=== PATIENT | female | born 1985 | race Caucasian/White ===

== ENCOUNTER 2021-09-14 00:13 | Day surgery (SDC) | payer OTHER, SELFPAY ==
[2021-09-02 14:07] VITALS: BMI 52.4
--- NOTE | 2021-09-11 11:13 | SUR.PREOP ---
Left voicemail about magnesium citrate recall.
[2021-09-14 11:05] VITALS: BP 133/73; PULSE 92; RESP 18; TEMP 36.4; O2SAT 100
[2021-09-14] MEDS: LACTATED RINGERS 1,000 ML 150 ML IV CONT (11:07)
--- NOTE | 2021-09-14 11:48 | P.HP_ITS ---
H&P: HPI History of Present Illness Date/Time: 09/14/21 11:48 Chief Complaint: Rectal bleeding. Narrative: This is a 36-year-old white female patient has a lifelong history of bowel issues. She has a long history of constipation. Has had bright red blood per rectum frequently. This has been ongoing although somewhat intermittent. Page presents today for further evaluation. Her family history is significant her mother had polyps her grandmother had colon cancer. Patient denies any specific abdominal pain. Patient presents today for colonoscopy to assess rectal bleeding. Review of Systems Review of Systems: Review of systems noncontributory. 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 [employer] Gender identity (if verbalized by the patient): Female Sexual Orientation (if Verbalized by the Patient): Straight or Heterosexual Meds Home Medications and Allergies Home Medications Medication Instructions Recorded Confirmed Type triamcinolone acetonide 0.1 % 1 applic topical BID #30 grams 03/26/21 09/14/21 Rx topical cream duloxetine 60 mg capsule,delayed 60 mg PO DAILY #30 caps 09/11/21 09/14/21 Rx release (Cymbalta) Allergies Allergy/AdvReac Type Severity Reaction Status Date / Time quetiapine [From Seroquel] Allergy Severe Swelling Verified 09/14/21 11:03 of Lip/Tongue/Throat diphenhydramine AdvReac Mild Other Verified 09/14/21 11:03 [From Benadryl] Vital Signs Vital Signs - 24 hr 09/14/21 11:05 Temperature 97.6 F Pulse Rate 92 Respiratory Rate 18 Blood Pressure 133/73 Pulse Oximetry 100 Oxygen Delivery Room Air Exam Narrative: Physical exam reveals patient be alert. Vital signs stable. HEENT exam is unremarkable. Patient is anicteric. Lungs are clear to auscultation and percussion. Heart is without murmur or extra sounds. Abdominal exam bowel sounds are present soft nontender with no organomegaly. Digital external rectal exam is normal. Assessment and Plan Assessment and plan (1) Blood present in stool: Code(s): K92.1 - Melena Status: Acute Assessment and Plan: Patient with rectal bleeding. A appears to be associated with her regular bowel habits and tendency towards constipation. Family history is significant her mother had colon polyps in a grandparent had colon cancer. Plan is for screening colonoscopy at this time. Fiber supplementation is encouraged. If hemorrhoids are identified she may benefit from surgical evaluation for hemorr hoidectomy given the long standing frequent rectal bleeding.
--- NOTE | 2021-09-14 12:01 | WPDANESEPPF ---
Anes - Initial Pre Proc Eval Procedure: Operation Date: 09/14/21 12:30 Proposed Procedures p Colonoscopy - Humphrey Chacko MD Date/Time: 09/14/21 12:01 Surgeon: Humphrey Chacko MD Pre Op Diagnosis: melena Patient Data Age: 36 Gender: F Height: 1.57 m Weight: 130.7 kg Last Vital Signs Temp 97.6 F 09/14/21 11:05 Pulse 92 09/14/21 11:05 Resp 18 09/14/21 11:05 BP 133/73 09/14/21 11:05 Pulse Ox 100 09/14/21 11:05 O2 Del Method Room Air 09/14/21 11:05 Allergies Allergy/AdvReac Type Severity Reaction Status Date / Time quetiapine [From Seroquel] Allergy Severe Swelling Verified 09/14/21 11:03 of Lip/Tongue/Throat diphenhydramine AdvReac Mild Other Verified 09/14/21 11:03 [From Benadryl] Home Medications Medication Instructions Recorded Confirmed Type triamcinolone acetonide 0.1 % 1 applic topical BID #30 grams 03/26/21 09/14/21 Rx topical cream duloxetine 60 mg capsule,delayed 60 mg PO DAILY #30 caps 09/11/21 09/14/21 Rx release (Cymbalta) Patient hx anesthesia problems: none Family hx anesthesia problems: none Results Review: All pre-operative results and documents have been reviewed as part of the pre-operative evaluation. 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 Informed Consent: The patient's anesthetic plan and its attendant risks and benefits were discussed with the patient/family/POA. Questions were solicited and answers provided to the satisfaction of the patient/family/POA.
[2021-09-14 12:45] VITALS: BP 78/59; PULSE 79; RESP 22; O2SAT 100
[2021-09-14 12:55] VITALS: BP 109/83; PULSE 73; RESP 20; O2SAT 100
[2021-09-14 13:05] VITALS: BP 115/75; PULSE 78; RESP 18; O2SAT 100
== END 2021-09-14 13:12 | disposition home or self-care (01) ==
PROVIDERS: PCP Internal Medicine; Visit Provider Internal Medicine Gastroenterology
PROC: 0DJD8ZZ Inspection of Lower Intestinal Tract, Via Natural or Artificial Opening Endoscopic (ICD-10-PCS; CPT 45378; principal; 2021-09-14 12:30)
DX: K62.5 Hemorrhage of anus and rectum (principal); D12.0 Benign neoplasm of cecum; D12.2 Benign neoplasm of ascending colon; K64.8 Other hemorrhoids; Z83.71 Family history of colonic polyps; K59.00 Constipation, unspecified; Z87.891 Personal history of nicotine dependence; E66.01 Morbid (severe) obesity due to excess calories; Z68.43 Body mass index [BMI] 50.0-59.9, adult
CPT/HCPCS: 45385; 88305; J2704; J7120

== ENCOUNTER 2021-10-26 11:04 | Emergency (ER) | payer OTHER, SELFPAY ==
--- NOTE | ~2021-10-26 | XR_ITS ---
XR chest 2V 10/26/2021 15:50 Indication: Shortness of breath. Chest pain. Procedure: 2 view chest Comparison: 05/15/2021 Findings: Heart size normal. Mildly elevated right diaphragm. Prominent fat pad along the right costo phrenic angle. No significant effusion seen on the lateral view. There are fusion changes of the thor acic spine. No acute focal pneumonia, edema or pneumothorax. Impression: 1: No acute cardiopulmonary disease. Reviewed, dictated and finalized at location A. Impression: 1: No acute cardiopulmonary disease.
[2021-10-26 11:46] VITALS: BP 138/85; PULSE 100; RESP 19; TEMP 36.4; O2SAT 100
--- NOTE | 2021-10-26 11:50 | ECG_ITS ---
Measurements Intervals [place] Rate: 92 P: 41 MT: 142 QRS: 1 QRSD: 84 T: 20 QT: 333 QTc: 413 Interpretive Statements SINUS RHYTHM LOW QRS VOLTAGE IN PRECORDIAL LEADS BORDERLINE ECG NO PREVIOUS ECG AVAILABLE FOR COMPARISON Electronically Signed On 10-26-2021 13:57:11 CDT by Michael Chen D.O.
[2021-10-26 13:45] LABS: Basophils Percent Auto 0.3 % (0.2-1.2); Eosinophils Absolute Auto 0.1 K/mm3 (0-0.3); Eosinophils Percent Auto 1.2 % (0-4.4); Hematocrit 43.2 % (37.0-47.0); Hemoglobin 14.1 g/dL (12.0-15.0); Immature Granulocyte Absolute 0.04 K/mm3 (0.00-0.031); Immature Granulocyte Percent A 0.4 % (0-0.5); Lymphocytes Percent Auto 20.2 % (18.3-44.2); Mean Corpuscular HGB Conc 32.6 g/dl (32-36); Mean Corpuscular Hemoglobin 29.9 pg (26-34); Mean Corpuscular Volume 91.7 fl (80-100); Mean Platelet Volume 9.3 fl (7.4-10.4); Monocytes Absolute Auto 0.6 K/mm3 (0.1-0.6); Monocytes Percent Auto 6.8 % (2.6-8.5); Neutrophils Absolute Auto 6.7 K/mm3 (1.3-6.7); Neutrophils Percent Auto 71.1 % (45.5-73.1); Platelet Count Result 385 k/mm3 (150-375); Red Blood Count 4.71 M/mm3 (4.2-5.4); Red Cell Distribution Width 13.2 % (11.5-14.5); White Blood Count 9.4 K/mm3 (4.5-10.0)
[2021-10-26 13:57] LABS: Alanine Aminotransferase 34 U/L (6-35); Albumin Level 4.7 g/dL (3.5-5.1); Alkaline Phosphatase 94 U/L (38-126); Anion Gap 14 mmol/L (8-16); Aspartate Amino Transferase 32 U/L (14-36); Bilirubin,Total 0.3 mg/dL (0.2-1.3); Blood Urea Nitrogen 10 mg/dL (7-17); Calcium 8.7 mg/dL (8.4-10.2); Carbon Dioxide 25 mmol/L (22-30); Chloride 101 mmol/L (98-107); Estimated CRCL calculation 171 ml/min; Estimated Glomerular Filt Rate > 60; Glucose 88 mg/dL (65-110); Potassium 3.7 mmol/L (3.4-5.0); Sodium 140 mmol/L (137-145)
[2021-10-26 14:05] VITALS: BP 132/84; PULSE 100; RESP 17; TEMP 36.6; O2SAT 98
--- NOTE | 2021-10-26 15:33 | ED.GENADULT ---
HPI - General Adult General Chief complaint: Unspecified <Eugenia Rhodes PA-C - Last Filed: 10/26/21 18:52> Stated complaint: sinus infection, ear infection, wound, <DYANA Ozuna Last Filed: 10/26/21 18:52> Time Seen by Provider: 10/26/21 14:58 <DYANA Ozuna Last Filed: 10/26/21 18:52> Source: patient <DYANA Ozuna Last Filed: 10/26/21 18:52> Mode of arrival: ambulatory <DYANA Ozuna Last Filed: 10/26/21 18:52> Limitations: no limitations <DYANA Ozuna Last Filed: 10/26/21 18:52> History of Present Illness HPI narrative: Patient is a 36 y/o female who presents to the ED with multiple complaints. She reports having sinus issues with sinus pressure, congestion, runny nose for the past 2 years. She has been on multiple different antibiotics previously without relief. Symptoms have become worse again over the last 1 week. She has been taking Tylenol at home. She has not tried any decongestants or antihistamine medications. With this, she also reports pain in L ear, drainage from L ear, subjective fever. No cough, significant sore throat, nausea, vomiting. Patient also reports having midsternal chest pain and difficulty breathing since yesterday. She states it just feels difficult to take a full breath. Denies any significant pain with taking deep breath. She states she had similar symptoms in the past and was diagnosed with walking pneumonia. Patient further reports having a nonhealing wound under her right breast, which she attributes to her back surgery 20 years ago in which she had a rib removed. <DYANA Ozuna Last Filed: 10/26/21 18:52> Related Data Allergies/adverse reactions: Allergies Allergy/AdvReac Type Severity Reaction Status Date / Time quetiapine [From Seroquel] Allergy Severe Swelling Verified 09/14/21 11:03 of Lip/Tongue/Throat diphenhydramine AdvReac Mild Other Verified 09/14/21 11:03 [From Benadryl] <Eugenia Rhodes PA-C - Last Filed: 10/26/21 18:52> Review of Systems Review of Systems: CONSTITUTIONAL: Reports subjective fever. ENT: Reports sinus pressure, rhinorrhea, congestion, left otalgia, left otorrhea. CARDIOVASCULAR: Reports midsternal CP. RESPIRATORY: Reports SOB. Denies cough. GASTROINTESTINAL: Denies abdominal pain, nausea, vomiting. SKIN: Reports wound under R breast. <Eugenia Rhodes PA-C - Last Filed: 10/26/21 18:52> All systems reviewed & are unremarkable except as noted in HPI and below <Eugenia Rhodes PA-C - Last Filed: 10/26/21 18:52> [facility] Past Medical History Medical History: Medical History (Updated 10/26/21 @ 18:25 by Eugenia Rhodes PA-C) Depression with anxiety Psoriasis <Eugenia Rhodes PA-C - Last Filed: 10/26/21 18:52> Surgical History Surgical History: Surgical History (Updated 10/26/21 @ 18:25 by Eugenia Rhodes PA-C) History of back surgery 2004 History of colonoscopy <Eugenia Rhodes PA-C - Last Filed: 10/26/21 18:52> Social History Social History: Social History Smoking packs per day: 0.15 Smoking cigarettes per day: 3.0 Years smoked: 5 Smoking pack-years: 0.75 Smoking status: Former smoker Second hand tobacco smoke exposure: Yes Smoking end date: 02/07/11 Alcohol intake: current Drinks per week: 5 Substance use: former Substance use type: marijuana 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 HEAD: Normocephalic, atraumatic. EYES: PER
[2021-10-26 16:12] LABS: Troponin I < 0.012 ng/mL (0.000-0.034)
[2021-10-26 16:32] LABS: D Dimer 1.85 ug/mL (<0.48)
[2021-10-26 16:50] LABS: SARS-CoV-2 RNA PCR Negative
--- NOTE | 2021-10-26 17:38 | PC.NURSE ---
Provider went to check on patient and she was gone from the room. patent called and provider speaking with patient now about lab results
== END 2021-10-26 17:40 | disposition left against medical advice (07) ==
PROVIDERS: Physician Assistant; Emergency Provider Emergency Medicine; PCP Internal Medicine
DX: H61.22 Impacted cerumen, left ear (principal); H66.91 Otitis media, unspecified, right ear; L30.4 Erythema intertrigo; R79.1 Abnormal coagulation profile; Z20.822 Contact with and (suspected) exposure to COVID-19; F41.8 Other specified anxiety disorders; L40.9 Psoriasis, unspecified; Z87.891 Personal history of nicotine dependence; R94.31 Abnormal electrocardiogram [ECG] [EKG]
CPT/HCPCS: 36415; 71046; 71275; 80053; 81025; 84484; 85025; 85380; 93005; 99284; C9803; Q9967; U0003; U0005

== ENCOUNTER 2021-10-26 18:20 | Emergency (ER) | payer OTHER, SELFPAY ==
--- NOTE | ~2021-10-26 | CT_ITS ---
EXAMINATION: CTA chest PE protocol DATE: 10/26/2021 22:41 INDICATION: Dyspnea w/ elevated d-dimer TECHNIQUE: Computed tomography angiography (CTA) of the chest was performed with 200 mL Omnipaque-350 intravenous contrast, in 2 separate injections of 100 mL, timed to evaluate the pulmonary arteries. Coronal maximum intensity projection 3D-reconstructions were created by the technologist. The dose-le ngth product (DLP) was 1921.50 mGy-cm. Automated exposure control and iterative reconstruction techni que were employed. COMPARISON: X-ray chest, same date. FINDINGS: Lung parenchyma and airways: Clear. Pleura: Unremarkable. Thoracic inlet, axillae and chest wall: Unremarkable. Thoracic aorta: Normal. Mediastinum: Normal. Heart and pericardium: Normal. Coronary artery calcifications: Absent. Upper abdomen: Severe hepatomegaly. Steatosis.. Bones: No acute osseous finding. Extensive posterior fusion hardware. Interbody devices at nearly all thoracic levels. Pulmonary arteries: Study quality: Severely degraded by quantum mottle and extensive beam hardening f rom thoracic spine hardware. No central or occlusive segmental pulmonary emboli detected. IMPRESSION: Severely limited examination as detailed above. Within those constraints, no definite central or occl usive segmental pulmonary emboli detected. Massive hepatomegaly. Steatosis. Reviewed, dictated and finalized at location K. IMPRESSION: Severely limited examination as detailed above. Within those constraints, no de finite central or occlusive segmental pulmonary emboli detected. Massive hepato megaly. Steatosis.
[2021-10-26 19:23] VITALS: BP 172/72; PULSE 131; RESP 20; TEMP 36.4; O2SAT 99
[2021-10-26 21:47] VITALS: O2SAT 99
[2021-10-26 21:49] VITALS: BP 139/97; PULSE 99; RESP 18; O2SAT 98
--- NOTE | 2021-10-26 22:13 | ED.GENADULT ---
HPI - General Adult General Chief complaint: Recheck/Abnormal Lab/Rx Stated complaint: abnormal blood work Time Seen by Provider: 10/26/21 21:06 History of Present Illness HPI narrative: This is a 36-year-old female who was seen earlier in our department for multiple complaints. Mother's complaints being chest pain and dyspnea. D-dimer was ordered at that time which was elevated. However the patient decided to leave before the results returned. She was called by the PA on staff is return emergency department for further evaluation. her physical complaints are unchanged from last visit. Related Data Allergies Allergy/AdvReac Type Severity Reaction Status Date / Time quetiapine [From Seroquel] Allergy Severe Swelling Verified 10/26/21 19:28 of Lip/Tongue/Throat diphenhydramine AdvReac Mild Other Verified 10/26/21 19:28 [From Benadryl] Review of Systems Review of Systems: CONSTITUTIONAL: Denies night sweats. EYES: No eye pain ENT: Denies rhinorrhea CARDIOVASCULAR: Denies palpitations RESPIRATORY: Denies hemoptysis GASTROINTESTINAL: Denies hematemesis GENITOURINARY: Denies hematuria. SKIN: Denies rash MUSCULOSKELETAL: Denies myalgia. NEUROLOGIC: Denies weakness. 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 EYES: PERRLA/EOMI, NOSE: Normal no drainage NECK: Supple, Trachea midline RESPIRATORY: clear to auscultation, normal respiratory rate CARDIOVASCULAR: S1S2 appreciated, tachycardic ABDOMINAL: Soft, nontender, nondistended, MUSCULOSKELETAl: No obvious deformities NEURO: Alert. Moving 4/4 extremities SKIN:: Warm, dry. Normal color PSYCHIATRIC: Normal affect Course Vital Signs Vital signs: Vital Signs Temperature 97.6 F 10/26/21 19:23 Pulse Rate 131 H 10/26/21 19:23 Respiratory Rate 10/26/21 19:23 Blood Pressure 172/72 H 10/26/21 19:23 Pulse Oximetry 99 10/26/21 19:23 Oxygen Delivery Room Air 10/26/21 19:23 Temperature 97.6 F 10/26/21 19:23 Pulse Rate 115 H 10/26/21 23:24 Respiratory Rate 10/26/21 23:24 Blood Pressure 139/97 H 10/26/21 21:49 Pulse Oximetry 100 10/26/21 23:24 Oxygen Delivery Room Air 10/26/21 21:47 Medical Decision Making MDM Narrative Medical decision making narrative: Patient presented back to the ED to obtain a CT with for pulmonary embolism. While the CT of pulmonary embolism was limited by patient motion there is no evidence of occlusive pulmonary embolism. It did show hepatic steatosis. This can be followed up with the patient's primary care physician. Vital Signs Vital Signs: Vital Signs Temperature 97.6 F 10/26/21 19:23 Pulse Rate 131 H 10/26/21 19:23 Respiratory Rate 10/26/21 19:23 Blood Pressure 172/72 H 10/26/21 19:23 Pulse Oximetry 99 10/26/21 19:23 Oxygen Delivery Room Air 10/26/21 19:23 Temperature 97.6 F 10/26/21 19:23 Pulse Rate 115 H 10/26/21 23:24 Respiratory Rate 10/26/21 23:24 Blood Pressure 139/
--- NOTE | 2021-10-26 23:00 | PC.NURSE ---
This RN entered room to reapply heart monitor. Pt witnessed in chair off of stretcher, tearful. Pt states I dont feel safe being this close to some one vomiting. im just going to leave . Pt was asked to explain worries to this RN in order to attempt to alleviate anxieties. Pt states Im just really stressed. I dont feel safe next to someone vomiting . PAGE Gentile notified. After reviewing results, PAGE Gentile states he will discharge pt. Pt notified and states she will wait for discharge papers.
[2021-10-26 23:24] VITALS: PULSE 115; RESP 20; O2SAT 100
== END 2021-10-26 23:26 | disposition home or self-care (01) ==
PROVIDERS: Emergency Provider Emergency Medicine; PCP Internal Medicine
DX: R07.9 Chest pain, unspecified (principal); K76.0 Fatty (change of) liver, not elsewhere classified; F41.8 Other specified anxiety disorders; L40.9 Psoriasis, unspecified; Z87.891 Personal history of nicotine dependence
CPT/HCPCS: 36415; 71046; 71275; 80053; 81025; 84484; 85025; 85380; 93005; 99199; 99284; C9803; Q9967; U0003; U0005

== ENCOUNTER 2024-07-04 12:31 | Outpatient (CLI) | payer OTHER, SELFPAY ==
--- NOTE | ~2024-07-04 | XR_ITS ---
Lumbosacral Spine: AP and lateral views Clinical History: Pain Findings: The normal lordotic curve is maintained. Posterior fusion hardware extends from at least T1 0-L3, bilateral rods and transpedicular screws present. There is fusion cages at the T9-T10, T10-T11, T11-T12, T12-L1, and L1-L2 levels. There is severe degenerative disc change at L3-L4. There is moder ate to advanced facet arthropathy from L3 through S1. The sacroiliac joints are normally outlined. Impression: Extensive thoracolumbar spinal fusion, as detailed above. Degenerative spondylosis of the lower lumbar spine, as above. Reviewed, dictated and finalized at location M. Impression: Extensive thoracolumbar spinal fusion, as detailed above. Degenerative spondylosis of the lower lumbar spine, as above.
--- NOTE | ~2024-07-04 | XR_ITS ---
Cervical Spine: AP, lateral, open-mouth views Clinical History: Pain Findings: The normal lordotic curve is maintained. The vertebral bodies and posterior elements appea r intact. There is moderate degenerative distended at C4-C5, C5-C6, with advanced degenerative disc n arrowing at C6-C7. There is minimal facet arthropathy. Pre-vertebral soft tissues are unremarkable. Impression: [id number] degenerative spondylosis overall, as detailed above. Reviewed, dictated and finalized at location M. Impression: [id number] degenerative spondylosis overall, as detailed above.
--- NOTE | ~2024-07-04 | XR_ITS ---
Thoracic spine: Clinical Indication: Back pain AP and lateral views were performed. No fracture is seen. There is extensive posterior fusion from T3 through L3. There is fusion across t he associated disc spaces as well. No acute fracture or subluxation evident. Paravertebral soft tissu es appear normal. Impression: Extensive thoracolumbar spinal fusion, as detailed above. Reviewed, dictated and finalized at location . Impression: Extensive thoracolumbar spinal fusion, as detailed above.
--- OUTSIDE RECORDS SUMMARY | 2024-07-04 12:36 | XMS_ITS | Clinical Summary ---
Author Organization [facility] Address [address] [place] [address] Care Team Providers Care Retention Manager Name Role Phone Unavailable Primary Care Provider Unavailabl e Source Comments [facility],non-owned Affiliates and Associated Physician Practices is amultiple site organization consisting of ambulatory clinics and hospital sitesin [place], [place], [place] and [place]. This disclosure is being madepursuant to the Care Everywhere program and may not contain all information available regarding this patient. Last updated 17.[facility] [employer] Allergies No known active allergies Medications * Be aware that medications may not be up to date on this document. Alwaysverify current medications with the patient. ALPRAZolam (XANAX) 0.25 MG tablet Take 0.25 mg by mouth as needed. Active DULoxetine (CYMBALTA) 60 MG capsule Take 30 mg by mouth once daily. 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 Gender Identity Not on file Sexual Orientation Not on file Last Filed Vital Signs Vital Sign Reading Time Taken Comments Blood Pressure 126/68 05/24/2014 9:42 AM CDT Pulse 96 05/24/2014 9:42 AM CDT Temperature 36.8 C (98.2 F) 04/30/2014 11:00 PM CDT Respiratory Rate 20 05/24/2014 9:42 AM CDT Oxygen Saturation 98% 05/24/2014 9:42 AM CDT Inhaled Oxygen Concentration - - Weight 125.2 kg (276 lb) 05/24/2014 9:42 AM CDT Height 157.5 cm (5' 2) 05/24/2014 9:42 AM CDT Body Mass Index 50.48 05/24/2014 9:42 AM CDT Plan of Treatment Health Maintenance Due Date Last Done Comments HIV SCREENING 2001 HEPATITIS C SCREENING 03/24/2004 DTAP/TDAP/TD VACCINES (1 - Tdap) 2005 HEPATITIS B VACCINE (1 of 3 - 19+ 3-dose series) 2005 COVID-19 VACCINE (1 - 2023-2 5 season) 2023 DEPRESSION SCREENING 02/08/2024 INFLUENZA VACCINE (Season Ended) 2024 ZOSTER VACCINE (1 of 2) 2036 HIB VACCINE Aged Out No longer eligi ble based on patient's age to complete this topic HPV VACCINE Aged Out No longer eligi ble based on patient's age to complete this topic MENINGOCOCCAL (Group B) VACC INE SHARED DECISION-MAKING Aged Out No longer eligibl e based on patient's age to complete this topic MENINGOCOCCAL GROUPS A/C/Y/W VACCINE Aged Out No longer eligible b ased on patient's age to complete this topic PNEUMOCOCCAL VACCINE Aged Out No long er eligible based on patient's age to complete this topic Insurance [facility]
== END 2024-07-04 12:32 | disposition home or self-care (01) ==
PROVIDERS: PCP Family Medicine; Visit Provider Nurse Practitioner Family
DX: M47.896 Other spondylosis, lumbar region (principal); M47.892 Other spondylosis, cervical region; Z98.1 Arthrodesis status
CPT/HCPCS: 72040; 72070; 72100

== ENCOUNTER 2024-09-27 08:15 | Outpatient (RCR) | payer OTHER, SELFPAY ==
--- NOTE | 2024-08-15 08:56 | PTOPEVAL1 ---
Assessment and note entered by Claudia Kendall, PT Evaluation Information Assessment Status Evaluation ICD-10 Condition Codes (PT) Pain in low back M54.50 Onset summer Subjective Information Pt was 15 years old when she had a thoracolumbar fusion for scoliosis. She is having worsening pain over the last year or so that she is attributing to the hardware in her spine. She was laid off work and became more sedentary so she feels weaker than normal. 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 She struggles to lay flat on her back due to pain as well as prolonged walking and standing. Her pain is more localized ot her L glute with associated numbness and tingling into the L foot. Her whole back bothers her at times though. She is having a hard time standing long enough to shower, do dishes, vacuuming, and is unable to go to the grocery store. She has to lean forward to help alleviate her pain and spread her legs wide. She is struggling to get comfortable at night and she is losing 2-4 hours of sleep a night. She has to sleep with pillows under her hips on her belly sometimes. She also reports the inability to has sexual intercourse for 6 months due to pain. She denies bowel or bladder changes or saddle anesthesia. Reported Pain Level Pain Score 4: Self Report Assessment PT Clinical Summary Pt is a 39 year old female who presents to physical therapy with a primary complaint of low back pain worsening since the summer for 2023. Pt demonstrates SIRI LE weakness, core weakness, pain, decreased mobility, abnormal posture, gait deficit, decreased endurance, and decreased flexibility that limit their ability to perform ADLs. Pt will benefit from skilled physical therapy to address the above listed deficits and return to PLOF. HEP instructed and written handout provided, EX tolerated well with no adverse effects to note post-session. Pt was educated on importance of adherence to HEP. Pt was also educated on anatomy, prognosis, home modalities, and PT POC. Plan of Care Interventions Aquatic Therapy,Electrical Stimulation,Gait Training,Hot Pack/Cold Pack,Manual Therapy,Neuro Re-education,Patient/Caregiver Education, Therapeutic Activities,Therapeutic Exercise PT Services Indicated Yes Treatment Frequency and 2x/wk for 12 sessions Duration These treatments will address the objective and functional deficits as defined above. The patient will be advanced safely and appropriately in order for the patient to progress towards his/her prior level of function. Additional exercises will be introduced and as well as a comprehensive home exercise program upon discharge, if needed, ?to ensure carryover of functional gains achieved in the clinic. This treatment plan has been reviewed and agreement upon by the patient.
--- NOTE | 2024-08-15 08:57 | OPREHPOC ---
Outpatient Therapy Plan of Care This is a Multidisciplinary Plan of Care that may contain components documented by all disciplines (PT, OT, and ST.) PT Problem 1 PT Problem #1 Knowledge Deficit PT Goal 1 Goal / Goal Update Patient to demonstrate independence with HEP for improved self-reliance of symptom management. Target Visit 4 PT Problem 2 PT Problem #2 Impaired Strength PT Goal 1 Goal / Goal Update Patient to demonstrate SIRI hip flexion and abduction strength >=4/5 for improved functional stability required for ADLs. Target Visit 12 PT Problem 3 PT Problem #3 Impaired Flexibility PT Goal 1 Goal / Goal Update Patient to demonstrate an increase in SIRI hamstring length of 25 deg to improve flexibility required for normalized posture. Target Visit 12 PT Problem 4 PT Problem #4 Impaired Endurance PT Goal 1 Goal / Goal Update Patient to improve distance ambulated during 2MWT from 425 feet to 500 feet to demonstrate an improvement in ADL endurance. Target Visit 12 PT Problem 5 PT Problem #5 Pain PT Goal 1 Goal / Goal Update 1. Patient will decrease their Modified Oswestry score by at least 10 points to indicate significant improvement in functional abilities and quality of life. 2. Patient to decrease subjective reports of pain to <4/10 when standing or walking >=5 minutes for improved ADL tolerance. Target Visit 12
--- NOTE | 2024-08-23 08:21 | PCPTNOTE ---
Cancelled due to schedule conflict per front office. AKS
--- NOTE | 2024-09-03 08:54 | PCPTNOTE ---
Cancelled, lack of transportation per front office. AKS
--- NOTE | 2024-09-20 08:02 | PCPTNOTE ---
Pt called to cancel her appointment today due to dizziness, and neurological issues.
--- NOTE | 2024-09-21 10:31 | PCPTNOTE ---
Pt canceled today due to illness.
--- NOTE | 2024-09-26 08:16 | PCPTNOTE ---
pt called tp cancel todays appt, sick
--- NOTE | 2024-10-01 09:24 | PCPTNOTE ---
pt called to cancel todays appt, stated she is in too much pain. PT called and left VM reminding pt of cancellations policy and upcoming appts. Education on importance of adherence to PT to improve sxs.
--- NOTE | 2024-10-03 08:56 | PTOPDC ---
Assessment and note entered by Claudia Kendall, PT Evaluation Information Assessment Status Discharge - Pt Not Present ICD-10 Condition Codes (PT) Pain in low back M54.50 Onset summer Subjective Information Pt has violated attendance policy of facility. Has 4 cancellations or no shows on her record. Pt was contacted and informed she will be discharged from PT. Assessment PT Clinical Summary Pt has violated attendance policy of facility. Has 4 cancellations or no shows on her record. Pt was contacted and informed she will be discharged from PT. Pt to be discharged from physical therapy this date. Plan of Care PT Services Indicated Yes
== END 2024-10-03 09:32 | disposition home or self-care (01) ==
LOC: ANHPT 08:15
PROVIDERS: PCP Nurse Practitioner Family; Visit Provider Nurse Practitioner Family
DX: M47.816 Spondylosis without myelopathy or radiculopathy, lumbar region (principal); M41.125 Adolescent idiopathic scoliosis, thoracolumbar region
CPT/HCPCS: 97110; 97161; 97530

== ENCOUNTER 2024-12-20 08:17 | Outpatient (CLI) | payer OTHER, SELFPAY ==
--- NOTE | 2025-01-15 17:56 | WPDHOMESLEEP ---
Sleep Study - Home Unattended Date of Study: 12/20/24 Ordering Provider: Indigo Bacon APRN Interpreting Provider: DO Hadley Schrader Sleep Study Type: Watch PAT Height: 1.57 m Weight: 136.078 kg Body Mass Index: 54.8 Neck Circumference (inches): 18.5 Sisters: 5 Reason for Sleep Study Daytime hypersomnia, trouble falling and staying asleep Sleep History The patient is a 39-year-old female that had a sleep study ordered by her primary care for evaluation of sleep apnea. The patient admits to snoring loudly, excessive daytime sleepiness, interruptions in breathing while asleep, trouble falling asleep, trouble staying asleep and unwanted behaviors during sleep. She does feel tired or sleepy during the day. She does feel tired in the morning. She does have the urge to fall asleep during the day. She denies feeling drowsy while driving. She does choke or gasp at night. She does have trouble breathing on her back. She does have morning headaches. She does have a dry or sore mouth/ throat in the morning. She does have nocturnal heartburn. She urinates 3 times throughout the night. She denies having difficulty returning to sleep if she wakes up throughout the night. She does use hypnotic or sedative use. She does feel anxious about sleep. She denies sleep paralysis, cataplexy and hypnagogic/ hypnopompic hallucinations. She does clench or grind her teeth. She does kick or jerk her legs excessively. She does have a restless feeling in her legs it causes an urge to move her legs. It gets worse with rest and better with activity. It is worse in the evening or at night time and does cause a disturbance in her sleep. She goes to bed at 10:30 p.m. on work days and at 10:45 p.m. on her days off. It takes her 90 minutes to fall asleep on work days and 2 hours on her days off. She gets 9 hours 45 minutes of sleep on work days and 9 hours on her days off. Her sleep is not restorative on her days off. She denies taking any planned naps. She does act out her dreams. she has had sleep walking episodes as an adult. She consumes 1-2 cups of caffeinated beverage per day. She consumes 2 alcoholic beverages 1-2 nights per week. She denies tobacco use. She denies exercising on a regular basis. [facility] Past Medical History Medical History control counseling Lumbar spondylosis Dorsalgia of lumbar region Cervicalgia Back pain Obese Candidal skin infection Adult wellness visit Encounter to establish care Encounter to establish care with new doctor Spider bite Shingles Blood present in stool Sore in nose LOM (left otitis media) Family history of MTHFR deficiency Encounter for vitamin deficiency screening Screening for thyroid disorder Screening for diabetes mellitus Screening for lipid disorders Screening for cardiovascular condition IBS (irritable bowel syndrome) Psoriasis Depression with anxiety Surgical History Surgical History Hx of wisdom tooth extraction S/P hernia surgery History of back surgery 2004 Family History Family History Other Breast cancer Carcinoma of colon Depression Social History Social History Smoking packs per day: 0.15 Smoking cigarettes per day: 3.0 Years smoked: 5 Smoking pack-years: 0.75 Smoking status: Former smoker Second hand tobacco smoke exposure: Yes Smoking end date: 02/07/11 Alcohol intake: current Drinks per week: 5 Substance use: current Substance use type: marijuana Lack of Transportation: No Lack of Food: Often True Current Housing: I Have Housing Concerned About Future Housing: No Difficulty Paying Gas/Electric Bills: YES Difficulty Paying for Meds: YES Currently Unemployed: No Education: Trade/Vocational Certificate Difficulty w/ Childcare or Family Care: No Living arrangements: with family Occupation/Education: occupation Additional occupation/education comments: 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[employer], [place] Gender identity (if verbalized by the patient): Female Sexual Orientation (if Verbalized by the Patient): Straight or Heterosexual Spiritual care concerns: No Agree to blood products: Yes Medications Home Medications ?Medication ?Instructions ?Recorded ?Confirmed ?Type magnesium 200 mg tablet 200 mg PO DAILY 07/29/23 12/25/24 History medroxyprogesterone 150 mg/mL 150 mg IM [id number] #1 mL 05/28/25 11/18/25 Rx intramuscular suspension (Depo-Provera) buspirone 15 mg tablet 15 mg PO QID #360 tabs 08/23/24 12/25/24 Rx hydroxyzine HCl 50 mg tablet See Rx Instructions PO QHS PRN 08/23/24 12/25/24 Rx sleep #180 tabs nystatin 100,000 unit/gram topical See Rx Instructions .Route 11/30/24 12/25/24 Rx powder (Nystop) .COMPLEX #60 grams triamcinolone acetonide 0.5 % 1 applic topical BID rash along 11/30/24 12/25/24 Rx topical cream chest #15 grams cyclobenzaprine 5 mg tablet 5 mg PO TID PRN muscle spasm #90 12/03/24 12/25/24 Rx tabs cholecalciferol (vitamin D3) 25 25 mcg PO DAILY #90 caps 12/14/24 12/25/24 Rx mcg (1,000 unit) capsule ferrous sulfate 325 mg (65 mg 325 mg PO DAILY #90 tabs 12/14/24 12/25/24 Rx iron) tablet celecoxib 200 mg capsule See Rx Instructions .Route 12/27/24 Rx .COMPLEX #60 caps duloxetine 60 mg capsule,delayed See Rx Instructions .Route 01/10/25 Rx release .COMPLEX #90 caps Sleep Procedure The sleep study was completed using [employer]pike[employer] a technically adequate device with seven channels: peripheral arterial tone, actigraphy, body position, snore, respiratory movement, pulse oximetry, sleep staging, and heart rate. Prior to using the device, the patient received verbal and written instructions for its application and was provided with the help desk phone number for additional telephonic instruction with 24-hour availability of qualified personnel to answer questions. The study was scored using CMS guidelines. Sleep Architecture The total recording time is 9 hrs, 59 min. The total sleep time is 8 hrs, 15 min. Sleep latency is 25 minutes. REM latency is 87 minutes. The patient had 17 episodes of waking. Sleep architecture shows 16.4% deep sleep, 67.2% light sleep, and (as % Total Sleep Time) showed NREM (Light 67.2%; Deep 16.4%), and a 16.4% stage REM. The patient spent 40.6% of total sleep time in the supine position. Sleep efficiency was 82.64. Respiratory Analysis The overall AHI (pAHI 4%:) is 4.8. The overall AHI (pAHI 3%:) is 12.2. The central AHI is 0.4. The AHI was 11.1 in NREM and 17.6 in REM sleep. The AHI was 15.1 in Supine and 8.9 in Non-supine sleep. Percent of Francisco Augustin respirations is 0.0. Oximetry Data The oxygen desaturation index (CURLY 4%:) is 4.2. The mean saturation is 97%, and the lowest saturation is 92%. Time spent with saturation < 88% is 0.0 minutes. Snoring Profile Snoring average intensity is 45 dB. The patient snored above 45 decibels for 167.8 minutes, 33.9% of sleep time. Cardiac Profile The average pulse rate is 86 beats per minutes. The lowest pulse rate is 60 bpm. The highest pulse rate reported is 110 bpm. Atrial fibrillation was not detected. Premature beats occur 0.3 per minute. Assessment and Plan Assessment and Plan (1) JEREMIAS (obstructive sleep apnea): Code(s): G47.33 - Obstructive sleep apnea (adult) (pediatric) Status: Acute Assessment and Plan: The patient had an overall AHI of 4.8 with desaturation down to 92%. This is not consistent with sleep-disordered breathing. The patient had a RDI (respiratory disturbance index) of 12.6. Due to the discrepancy between the AHI and RDI, further evaluation is warranted. I recommend that the patient have a split study with the use of a hypnotic to ensure we obtain enough sleep data. The patient's sleep history is somewhat suggestive of Restless Leg Syndrome. I recommend that the patient have a serum ferritin drawn for evaluation of iron deficiency anemia. If the patient has a serum ferritin less than 75 ng/mL, I recommend starting a daily iron supplement and a Vitamin C supplement for better absorption. If the serum ferritin is greater than 75 ng/mL, I recommend starting a dopamine agonist and titrating the dose until symptoms resolve. There are nonpharmacological methods to treat limb movements including daily exercise, stretching calf muscles before bed, avoiding excessive amounts of caffeine and alcohol, vitamin B supplementation, magnesium lotion massaged into legs before bed, and use of a weighted blanket. Data The data obtained during this sleep study is adequate for interpretation. Certification This sleep study has been reviewed by a board certified sleep medicine physician.
[2025-01-16 18:52] VITALS: BMI 54.8
== END 2024-12-21 13:17 | disposition home or self-care (01) ==
PROVIDERS: PCP Nurse Practitioner Family; Visit Provider Nurse Practitioner Family
DX: G47.30 Sleep apnea, unspecified (principal); G47.33 Obstructive sleep apnea (adult) (pediatric)
CPT/HCPCS: 95800